=== PATIENT | male | born 1975 ===

== ENCOUNTER 2018-08-12 13:59 | Emergency (ER) | payer OTHER ==
[2018-08-12 14:13] VITALS: BMI 30.9
[2018-08-12] MEDS ORDERED: TDAP Vaccine 0.5 mL Syr IM ONE (14:41)
--- NOTE | 2018-08-12 15:13 | RAD ---
Date of service: 08/12/2018 PROCEDURE: Right Thumb radiographs. HISTORY: s/p trauma COMPARISON: None. TECHNIQUE: AP radiograph of the right hand, as well as spot oblique and lateral images of thumb were obtained. FINDINGS: RIGHT THUMB: Tiny displaced bony fragment likely arising from the tuft of the 1st distal phalanx. No other fracture identified. The remainder of the visualized right hand is unremarkable. JOINTS: Normal. SOFT TISSUES: Normal. OTHER FINDINGS: None. IMPRESSION: Tiny displaced fracture fragment arising from tuft of 1st distal phalanx.
[2018-08-12 15:30] VITALS: BP 134/75
--- NOTE | 2018-08-12 15:43 | ED PDOC ---
Arrival/HPI - General Chief Complaint: Finger,Hand,&Wrist Time Seen by Provider: 08/12/18 14:20 Historian: Patient - History of Present Illness Narrative History of Present Illness (Text): 08/12/18 15:36 43yo male with no pmhx who present to ED for right thumb laceration s/p trauma. Patient is French speaking, RN Brianna tristan. Patients states he accidentally cut his thumb with a knife while gardening. States he is not up to date with his TD booster. He denies focal weakness, paresthesia. Have FROM of the thumb. Past Medical History - Provider Review Nursing Documentation Reviewed: Yes - Infectious Disease Hx of Infectious Diseases: None - Psychiatric Hx Substance Use: No Family/Social History - Physician Review Nursing Documentation Reviewed: Yes Family/Social History: Unknown Family HX Smoking Status: Never Smoked Hx Alcohol Use: No Hx Substance Use: No Allergies/Home Meds Allergies/Adverse Reactions: Allergies No Known Allergies Allergy (Verified 08/12/18 14:13) Review of Systems - Physician Review All systems were reviewed & negative as marked: Yes - Review of Systems Constitutional: Normal Eyes: Normal ENT: Normal Respiratory: Normal Cardiovascular: Normal Gastrointestinal: Normal Genitourinary Male: Normal Musculoskeletal: Normal Skin: Laceration (right thumb) Neurological: Normal Endocrine: Normal Hemo/Lymphatic: Normal Psychiatric: Normal Physical Exam Vital Signs Reviewed: Yes Vital Signs Temp Pulse Resp BP Pulse Ox 08/12/18 15:28 75 18 134/75 98 08/12/18 14:19 98.6 F 79 18 136/80 97 Temperature: Afebrile Blood Pressure: Normal Pulse: Regular Respiratory Rate: Normal Appearance: Positive for: Well-Appearing, Non-Toxic, Comfortable Pain Distress: None Mental Status: Positive for: Alert and Oriented X 3 - Systems Exam Head: Present: Atraumatic, Normocephalic Pupils: Present: PERRL Extroacular Muscles: Present: EOMI Conjunctiva: Present: Normal Mouth: Present: Moist Mucous Membranes Neck: Present: Normal Range of Motion Respiratory/Chest: Present: Clear to Auscultation, Good Air Exchange. No: Respiratory Distress, Accessory Muscle Use Cardiovascular: Present: Regular Rate and Rhythm, Normal S1, S2. No: Murmurs Abdomen: No: Tenderness, Distention, Peritoneal Signs Back: Present: Normal Inspection Upper Extremity: Present: Normal Inspection. No: Cyanosis, Edema Lower Extremity: Present: Normal Inspection. No: Edema Neurological: Present: GCS=15, CN II-XII Intact, Speech Normal Skin: Present: Warm, Dry, Normal Color, Laceration (Total avulsed laceration from the mid left thumb to part of the thumb tip noted. Bleeding controlled.). No: Rashes Psychiatric: Present: Alert, Oriented x 3, Normal Insight, Normal Concentration Medical Decision Making ED Course and Treatment: 08/12/18 15:45 Pt in ED for stated history. thumb was irrigated and cleaned with betadine and NS. No active bleeding noted. Bacitracine applied and dressed. Finger splint placed. Pt have FROM and NVI. No sign of tendon involvement noted. TD booster updated Keflex, Tylenol ordered Right hand xray IMPRESSION: Tiny displaced fracture fragment arising from tuft of 1st distal phalanx. Result was DW the pt. Danay, from registration interpreted and pt verbalized understanding. He was referred to a hand specialist and [facility] services give DC home with Keflex and Tylenol Advised to return to ED for any worsening symptoms - RAD Interpretation Radiology Orders: 08/12/18 14:40 HAND RIGHT THUMB [RAD] Stat - Medication Orders Current Medication Orders: Discontinued Medications Acetaminophen (Tylenol 325mg Tab) 650 mg PO STAT STA Stop: 08/12/18 14:42 Last Admin: 08/12/18 15:04 Dose: 650 mg [facility] Pain/Vitals Document 08/12/18 15:04 TOBACCO PREVENTION HEALTH EDUCATOR (Rec: 08/12/18 15:07 TOBACCO PREVENTION HEALTH EDUCATOR [facility] [place] Pain Reassessment Is This A Pain ReAssessment? Yes Sleep Is patient sleeping during reassessment? No Presence of Pain Presence of Pain Yes Pain Scale Used Protocol: PSCALES Pain Scale Used Numeric Location Left, Right or Bilateral Right Pain Location Body Site Thumb Description Constant Cephalexin Monohydrate (Keflex) 500 mg PO STAT STA; Protocol Stop: 08/12/18 14:42 Last Admin: 08/12/18 15:07 Dose: 500 mg Tetanus/Reduced Diphtheria/Acell Pertussis (Boostrix Vaccine Inj) 0.5 ml IM .ONCE ONE Stop: 08/12/18 14:42 Last Admin: 08/12/18 15:09 Dose: 0.5 ml MAR Immunization Data Document 08/12/18 15:09 TOBACCO PREVENTION HEALTH EDUCATOR (Rec: 08/12/18 15:09 TOBACCO PREVENTION HEALTH EDUCATOR [facility] [place]) Immunization Data Vaccine Information Sheet Given Yes Disposition/Present on Arrival - Present on Arrival Any Indicators Present on Arrival: No History of DVT/PE: No History of Uncontrolled Diabetes: No Urinary Catheter: No History of Decub. Ulcer: No History Surgical Site Infection Following: None - Disposition Have Diagnosis and Disposition been Completed?: Yes Diagnosis: Open fracture, Thumb laceration Disposition: HOME/ ROUTINE Disposition Time: 15:55 Patient Plan: Discharge Patient Problems: Current Active Problems Problem Status Onset Open fracture Acute Thumb laceration Acute Condition: STABLE Discharge Instructions (ExitCare): Common Finger Injuries Additional Instructions: Follow up with a hand specialist within 2days Return to ED for any worsening symptoms Prescriptions: Amoxicillin/Clavulanate [Augmentin 875 MG-125 MG] 1 tab PO BID #14 tab traMADol [Ultram] 50 mg PO TID #9 tab Referrals: [facility] [Outside] - Follow up with primary [facility] [place] - Follow up with primary Albin Vargas MD [Staff Provider] - Follow up with primary Alan Perez MD [Staff Provider] - Follow up with primary Forms: [employer] ([place])
[2018-08-12 16:40] VITALS: PULSE 80; RESP 17; TEMP 98; O2SAT 99
== END 2018-08-12 16:25 | disposition home or self-care (01) ==
LOC: ED 13:59
DX: S62.521B Displaced fracture of distal phalanx of right thumb, initial encounter for open fracture (principal); W26.0XXA Contact with knife, initial encounter; Y93.H2 Activity, gardening and landscaping; Y92.89 Other specified places as the place of occurrence of the external cause; Y99.9 Unspecified external cause status; Z23 Encounter for immunization

== ENCOUNTER 2018-08-14 17:18 | Emergency (ER) | payer OTHER ==
[2018-08-14 17:19] VITALS: BMI 30.9
[2018-08-14] MEDS ORDERED: Absorbable Gelatin Sponge Size 100 MM ONE (17:37)
--- NOTE | 2018-08-14 17:47 | ED PDOC ---
Arrival/HPI - General Time Seen by Provider: 08/14/18 17:23 Historian: Patient - History of Present Illness Narrative History of Present Illness (Text): 08/14/18 17:53 43 yo M sustained an avulsion to the distal tip of his R thumb at work recently, was seen and treated in this ER, and referred to a hand specialist who he saw today in the office. States that he was instructed on clean the wound daily and change the dressing daily. He said after leaving the office of the Dr. Vargas the hand specialist, he started to bleeding through his dressing. He reports no numbness, decrease in ROM, fever, chills. Has no other complaints. Of note, patient has Rx for augmentin and tramadol given to him from his initial ER visit for his injury. Past Medical History - Infectious Disease Hx of Infectious Diseases: None - Psychiatric Hx Substance Use: No Family/Social History Family/Social History: Unknown Family HX Smoking Status: Never Smoked Hx Alcohol Use: No Hx Substance Use: No Allergies/Home Meds Allergies/Adverse Reactions: Allergies No Known Allergies Allergy (Verified 08/14/18 17:40) Review of Systems - Review of Systems Constitutional: absent: Fatigue, Fevers Musculoskeletal: absent: Arthralgias, Back Pain, Neck Pain Skin: Laceration. absent: Rash, Pruritis, Skin Lesions Physical Exam Temperature: Afebrile Blood Pressure: Normal Pulse: Regular Respiratory Rate: Normal Appearance: Positive for: Well-Appearing, Non-Toxic, Comfortable Pain Distress: None Mental Status: Positive for: Alert and Oriented X 3 - Systems Exam Upper Extremity: Present: Normal ROM, NORMAL PULSES, Neurovascularly Intact, Capillary Refill < 2s, Other (+avulsion to the distal tip of the R thumb with mild active bleeding). No: Tenderness, Swelling, Erythema Neurological: Present: GCS=15, CN II-XII Intact, Speech Normal, Motor Func Grossly Intact, Normal Sensory Function Skin: Present: Warm, Dry, Normal Color. No: Rashes Psychiatric: Present: Alert, Oriented x 3, Normal Insight, Normal Concentration Medical Decision Making ED Course and Treatment: 08/14/18 17:51 Patient's wound was cleaned with water, gel foam and clean dressing was applied. Instructed to follow up with Dr. Vargas and to continue taking augmentin and tramadol. Prior to d/c the wound is clean without blood noted. - Medication Orders Current Medication Orders: Gelatin (Gelfoam Size 100) 1 spg MM ONCE ONE Stop: 08/14/18 17:38 - PA / PETROLEUM INSPECTOR SUPERVISOR / Resident Statement MD/DO has reviewed & agrees with the documentation as recorded. Disposition/Present on Arrival - Present on Arrival Any Indicators Present on Arrival: No History of DVT/PE: No History of Uncontrolled Diabetes: No Urinary Catheter: No History of Decub. Ulcer: No History Surgical Site Infection Following: None - Disposition Have Diagnosis and Disposition been Completed?: Yes Diagnosis: Visit for wound check, Change or removal of wound dressing Disposition: HOME/ ROUTINE Disposition Time: 17:45 Patient Plan: Discharge Patient Problems: Current Active Problems Problem Status Onset Visit for wound check Acute Change or removal of wound dressing Acute Condition: STABLE Discharge Instructions (ExitCare): Wound Care (DC) Print Language: FAROESE Additional Instructions: Thank you for letting us take care of you today. You were treated for wound check, dressing change. The emergency medical care you received today was directed at your acute symptoms. Continue to take current medications - augmentin and tramadol as prescribed. Return to the Emergency Department if your symptoms worsen, do not improve, or if you have any other problems. Please follow up with Dr. Vargas in 2 days for re-evaluation and follow up. Bring any paperwork you were given at discharge with you along with any medications you are taking to your follow up visit. Our treatment cannot replace ongoing medical care by a primary care provider (PCP) outside of the emergency department. Thank you for allowing the [facility] team to be part of your care today. Forms: WORK NOTE
[2018-08-14 17:48] VITALS: BP 142/83; PULSE 78; RESP 18; TEMP 98; O2SAT 99
[2018-08-14] MEDS ORDERED: Absorbable Gelatin Sponge Size 12-7 ONE (17:57)
== END 2018-08-14 18:31 | disposition home or self-care (01) ==
LOC: ED 17:18
DX: Z48.00 Encounter for change or removal of nonsurgical wound dressing (principal)